=== PATIENT | male | born 1990 | race Caucasian/White ===

== ENCOUNTER 2024-11-21 16:09 | Outpatient (REF) | payer SELFPAY ==
[2024-11-22 17:47] LABS: PSA, Screening 1.1 ng/mL (<=2.5)
== END 2024-11-21 16:10 | disposition home or self-care (01) ==
LOC: NCHCN 16:09
PROVIDERS: PCP Internal Medicine; Visit Provider Family Medicine
DX: Z80.42 Family history of malignant neoplasm of prostate (principal)
CPT/HCPCS: 84153